=== PATIENT | female | born 1940 | race Two or more races ===

== ENCOUNTER 2025-11-16 21:29 | Observation (INO) | payer OTHER, SELFPAY ==
[2025-11-16] VITALS (8 sets, daily range): BP systolic 151–180; BP diastolic 72–92; BMI 23.7
[2025-11-16 14:11] LABS: Hematocrit 53.9 % (37.0-47.0); Hemoglobin 17.0 g/dL (12.0-16.0); Mean Corp Hgb Conc. 31.5 g/dL (33.0-37.0); Mean Corpuscular Volume 87.2 fL (81.0-99.0); Nucleated Red Blood Cells % 0 %; Platelet Count 595 10^3/uL (130-400); Red Cell Dist. Width 16.9 % (11.5-14.5)
[2025-11-16 14:21] LABS: ALT (SGPT) 42 U/L (0-35); AST (SGOT) 57 U/L (14-36); Albumin 4.5 g/dl (3.5-5.0); Alkaline Phosphatase 177 U/L (38-126); Blood Urea Nitrogen 19 mg/dl (7-17); Calcium 9.6 mg/dl (8.4-10.2); Carbon Dioxide 21 mmol/L (22-30); Chloride 105 mmol/L (98-107); Glucose 148 mg/dl (70-99); Lipase 286 U/L (23-300); Potassium 4.3 mmol/L (3.5-5.1); Sodium 138 mmol/L (135-145); Total Protein 7.4 g/dl (6.3-8.2); eGFR > 60.00
[2025-11-16 14:30] LABS: Troponin I < 0.012 ng/ml
[2025-11-16 14:35] LABS: COVID-19 Antigen Negative (Negative)
--- NOTE | 2025-11-16 16:52 | ED.GENMED ---
History of Present Illness
General
Chief Complaint: Dizziness
Source: patient and maintenance inspector
Exam Limitations: none
Time Seen by Provider: 11/16/25 16:23
Nursing documentation reviewed up to this point in time: agreed with
History of Present Illness
History of Present Illness:
The patient is an 85-year-old female who speaks Indonesian and arrives with multiple complaints. Patient reports 5 days of dizziness and nausea. Her daughter is at the bedside and states she can even get up and walk. She denies any falls. She
reports she has never had this before. Patient reports that when she tries to get up and walk around, her vision changes, however, it is difficult to understand what specific changes there are. Patient denies loss of vision. Patient denies
headache and sore throat. Additionally, patient reports intermittent chest pain but denies current chest pain. She denies shortness of breath and cough. She denies intermittent left ear pain. Additionally, patient reports when she coughs the
right side of her abdomen hurts. She denies constipation and diarrhea. Her daughter reports she also seems weak and thinks she needs IV fluids.
Translation Services
Preferred Language: Indonesian
Past History
Past History
ED Past Medical History: HTN, Hypercholesterolemia and NIDDM
ED Past Surgical History: Other
Social History
Tobacco: Non-smoker
Alcohol: None
Drug: None
Personal: Other
Living: with family
Employment: Other
Family History
Family History: Other
Review of Systems
Review of Systems
Allergies reviewed?: Yes
Other source history: family
All Other Systems: ROS reviewed and negative except as documented in HPI and ROS
Constitutional: Reports fatigue
EENT: Reports other (Left ear pain)
Respiratory: Reports no symptoms
Cardiac: Reports chest pain
ABD/GI: Reports abdominal pain, nausea and vomiting
: Reports no symptoms
Musculoskeletal: Reports no symptoms
Skin: Reports no symptoms
Neurological: Reports dizzy
Endocrine: Reports no symptoms
Hematologic/Lymphatic: Reports no symptoms
Psychiatric: Reports no symptoms
Phy Exam
Physical Exam
Physical Exam:
Physical Exam
General: Patient appears uncomfortable, lying in position but nontoxic
Neck: supple. no meningeal signs. normal posterior pharynx. Tympanic membranes appear normal bilaterally
Heart: s1/s2 regular rate and rhythm, no murmur. equal radial pulses.
Lungs: no acute respiratory distress. clear bilaterally
Abdomen: Right sided abdominal tenderness. Possible right flank tenderness. Abdomen is soft and nondistended. Normal bowel sounds
Neuro: alert and orientedx3. no focal neurological deficits. 5 out of 5 strength in all extremities. Cranial nerves equal and symmetric bilaterally.
Skin: no rash
Psychiatric: well kept. interactive and cooperative
Extremities: no edema. no calf tenderness. negative homans. good distal pulses
Course
Orders/Labs/Results
Orders:
Orders
11/16/25 13:40
EKG [Electrocardiogram (*1)] Urgent
Reason for Study: Chest Pain
11/16/25 13:41
EKG- Treatment ONCE
11/16/25 13:57
COVID-19 Antigen Urgent
Source: Nasal Swab
Complete Blood Count/With Diff Urgent
Comprehensive Metabolic Panel Urgent
Lipase Urgent
Troponin I Urgent
Influenza A+B Rapid Molecular Urgent
ASHLEY Source: Nasal Swab
Specimen Description:
11/16/25 17:14
US Abdomen Complete/Upper Urgent
Comment:
Reason For Exam: R sided pain, increased LFTs
11/16/25 17:15
CT Head W/o Iv Contrast Urgent
Comment:
Reason For Exam: dizziness
Meclizine [Antivert] 37.5 mg PO NOW STA
11/16/25 17:20
0.9% Sodium Chloride 500 ml [Nss] 500 ml IV BOLUS
11/16/25 17:51
Urinalysis Reflex To Culture Urgent
Date Specimen was Collected: 11/16/25
Time Specimen was Collected: 17:50
Urine Microscopic Reflex Cult Urgent
Urine Culture Urgent
ASHLEY Source: U
Specimen Description:
Date Specimen was Collected: 11/16/25
Time Specimen was Collected: 17:50
Abnormal Lab Results
11/16/25 11/16/25
13:57 17:51
WBC 12.9 H 10^3/uL
(4.8-10.8)
RBC 6.18 H 10^6/uL
(4.20-5.40)
Hgb 17.0 H g/dL
(12.0-16.0)
Hct 53.9 H %
(37.0-47.0)
MCHC 31.5 L g/dL
(33.0-37.0)
RDW 16.9 H %
(11.5-14.5)
Plt Count 595 H 10^3/uL
(130-400)
Abs Immat Gran (auto) 0.1 H 10^3/uL
(0-0.05)
Absolute Neuts (auto) 10.2 H 10^3/uL
(1.4-6.5)
Neutrophils % 78.7 H %
(42.2-75.2)
Lymphocytes % 12.9 L %
(20.5-51.1)
Carbon Dioxide 21 L mmol/L
(22-30)
BUN 19 H mg/dl
(7-17)
Glucose 148 H mg/dl
(70-99)
AST 57 H U/L
(14-36)
ALT 42 H U/L
(0-35)
Alkaline Phosphatase 177 H U/L
(38-126)
Leukocyte Esterase Rfl 1+ A
(Negative)
Urine Albumin (Reflex) 1+ A
(Neg - Trace)
11/16/25 13:57
11/16/25 13:57
Vital Signs
Initial and Last Documented VS:
Initial Vital Signs
Temp Pulse Resp BP Pulse Ox
97.9 F 88 18 169/86 100
11/16/25 13:37 11/16/25 13:37 11/16/25 13:37 11/16/25 13:37 11/16/25 13:37
Last Documented Vital Signs
Temp Pulse Resp BP Pulse Ox
97.9 F 90 19 172/84 98
11/16/25 13:37 11/16/25 19:01 11/16/25 19:01 11/16/25 19:01 11/16/25 19:01
MDM/Problems Addressed
Differential Diagnosis Includes:
Acute CVA, acute vertigo, acute UTI
MDM/Problems Addressed:
Patient presents with acute dizziness, right sided abdominal pain
Chronic conditions affecting care: DM
Acute Exacerbation and/or Progression of Chronic Illness:
Patient is acutely hyperglycemic but no DKA
Acute Exacerbation and/or Progression of Chronic Illness: DM
*Radiology
Radiology exam reviewed: radiology read reviewed
*Pulse Oximetry
SaO2: 100
Oxygen Mode of Delivery: Room air
Patient hypoxic: no
*EKG
Interpreted by ED Provider?: Yes
Interpretation: normal
Comparison EKG: no comparison EKG present
Rate: normal
Rhythm: sinus
[place]: normal axis
Interval: normal interval
QRS Pattern: normal QRS
Ischemia: no ischemia
*Depot Agent Interpretation
Rate: normal
Interpretation: normal
Rhythm: sinus
*Critical Care Note
Total Time (30-74mins, 75-104mins- exclusive of procedures): Not Applicable
Data Reviewed
Source: patient, family and maintenance inspector
Patient Management
Social determinants of health affecting care: Living situation and Strong social support
Discussion with other providers: Hospitalist
Escalation/DeEscalation of care consider admission/obs:
7:30 PM I reassessed patient. She was able to walk but is still off balance. Her daughter reports this is very unusual for her. Given this, patient will be admitted for further neurological workup. Ultrasound does show cholelithiasis, however,
patient has had no significant right sided abdominal pain, nausea or vomiting in the ED and there is no sign of acute cholecystitis on ultrasound.
ED Attending Note
-
Portions of this chart may have been created with voice recognition software.� Occasional wrong word or��sound alike� substitutions may have occurred due to the inherent limitations of voice recognition software.
Discharge Plan
Departure
Patient Disposition: Admit
Date of Disposition: 11/16/25
Time of Disposition: 20:01
Admit to: Telemetry
Presentation/result/management discussed w/ accepting MD/DO: Hospitalist
Patient with high blood pressure during this ER visit?: Yes
Condition: Good
Covid-19: Negative COVID-19
Discharge Problem:
Acute dizziness, Cholelithiasis
Referrals:
Jonathan Toney MD [Family Provider, Internal Medicine]
Interventions
Interventions:
*General Assessment Last Done: 11/16/25 13:37
*ED COVID-19 Vaccine History Last Done: 11/16/25 13:37
*ED Influenza Vaccine History Last Done: 11/16/25 13:37
[facility] Risk Assessment Tool Last Done: 11/16/25 13:32
*Risk Screen - Suicide (C-SSRS) Last Done: 11/16/25 13:37
ED- Neurological Assessment Last Done: 11/16/25 17:54
ED- Cardiac Assessment Last Done: 11/16/25 17:54
ED Swallowing Screen Last Done: 11/16/25 19:13
Discharge Date and Time
Print Language: MALDIVIAN
[2025-11-16 18:18] LABS: Urine Character Clear (Clear)
[2025-11-16 18:27] LABS: Urine Red Blood Cell 0-2 /HPF (0-2)
[2025-11-16] MEDS: ANTIVERT 37.5 MG PO (18:38)
[2025-11-16] MEDS: NSS 500 IV (18:46)
--- NOTE | 2025-11-16 20:17 | HPS.HSE ---
Addendum entered and electronically signed by Harpal Okeefe DO 11/16/25 22:45:
Patient seen and examined independently. Agree with findings and plan as set forth by JULIANNE Sanchez.
Patient is an 85y F with PMH significant for hypertension, DM-II and iron deficiency who presents to ED complaining of dizziness, chest pain and cough. 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
Patient has reportedly had cough x several days - slowly improving according to daughter. Multiple family members have been ill with similar symptoms of late. Today patient complained of feeling dizzy with standing. She reports room spinning
sensation and nausea - but no emesis. She feels improved when lying down.
She also complains of some chest discomfort and R hip pain. No fall, injury or trauma per daughter.
Patient is able to move her RLE with no pain or restricted ROM in the ED.
Ass:
Dizziness, BPPV
Viral Bronchitis / Viral Syndrome
Transaminitis likely secondary to the above
Atypical Chest Pain
Polycythemia
Right Hip Pain
Benign Hypertension
DM-II
Plan:
Observe overnight for further evaluation and treatment.
Suspect viral syndrome including cough, abnormal LFTs and now inner ear involvement / BPPV.
Supportive care / symptom control.
PT / vestibular therapy evaluation.
Observe off of abx for now.
Follow for clinical improvement.
Check serial troponin given chest discomfort - though suspect this is due to cough > cardiac etiology.
PT eval for balance, gait and R hip discomfort. No suspicion of fracture / dislocation by exam.
Hold Lasix, metformin. Continue other home medications.
Original Note:
Family Physician
-
Family Physician: Jonathan Toney
Chief Complaint
-
dizzy, nausea
History of Present Illness
85-year-old female With past medical history for iron deficiency anemia, GERD, type 2 diabetes, hyperlipidemia, hypertension Presented to us with dizziness. She reports dizzy when she gets up and moving around. She feels like the room is spinning.
she is not able to stand up due to dizzy. denied any headache. Denied any syncopal episode. Patient complained of nonproductive cough for past few days which is improving.patient denied any fever, chills. Patient complaining of some left-sided
chest pain. she complained of left ear pain. patient complained of right hip thigh pain patient denied any abdominal pain she complained of nausea. Denied dysuria hematuria
paient recived a dose of meclizine in ER. patient also recived normal saline. admitting for further managment.
Medical History
Past Medical History
Past Medical History: Reports Other
Additional Past Medical History:
iron def anemia, HTn, GERD, type 2 Dm, GERD, HTN
Past Surgical History: Reports None
Social History
Tobacco: Non-smoker
Alcohol: None
Living: With Family
Family History
Family History: Not pertinent
Allergies / Home Medications
Allergies reflects when Allergies were last updated in [employer].
Home Medications with original date entered in [employer]
Allergy/Medication List:
Allergies
Allergy/AdvReac Type Severity Reaction Status Date / Time
No Known Allergies Allergy Unverified 11/16/25 13:40
Review of Systems
-
Constitutional: Reports No Symptoms
EENT: Reports No Symptoms
Respiratory: Reports Cough
Cardiac: Reports No Symptoms
Abdomen/GI: Reports Nausea
: Reports No Symptoms
Musculoskeletal: Reports No Symptoms
Skin: Reports No Symptoms
Neurological: Reports Dizzy
Endocrine: Reports No Symptoms
Hematologic/Lymphatic: Reports No Symptoms
Psych: Reports No Symptoms
Physical Exam
Vital Signs
Vital Signs
Temp Pulse Resp BP Pulse Ox
97.9 F 90 19 172/84 98
11/16/25 13:37 11/16/25 19:01 11/16/25 19:01 11/16/25 19:01 11/16/25 19:01
Physical Exam
General: Well Developed, Well Nourished and No Apparent Distress
HEENT: NormoCephalic, Moist mucous membranes and Atraumatic
Respiratory: Clear
Cardiac: S1/S2 and Regular Rhythm; No Murmur or Rub
GI: Soft, Non Tender, Non Distended and Normal Bowel Sounds; No Organomegaly
Rectal: Deferred by Provider
Musculoskeletal: No Clubbing, No Cyanosis and No Edema
Skin: No Rash
Neuro: AO x 3 and Nonfocal/grossly intact
Psych: Calm
Laboratory Results
-
11/16/25 13:57
11/16/25 13:57
Laboratory Results
Total Bilirubin 0.7 mg/dl (0.2-1.3) 11/16/25 13:57
AST 57 U/L (14-36) H 11/16/25 13:57
ALT 42 U/L (0-35) H 11/16/25 13:57
Alkaline Phosphatase 177 U/L (38-126) H 11/16/25 13:57
Troponin I < 0.012 ng/ml 11/16/25 13:57
Lipase 286 U/L (23-300) 11/16/25 13:57
Data Reviewed
-
CT Scan: Report Reviewed by me
Ultrasound: Report Reviewed by me
Lab Data: Labs Reviewed by me
Impression/Plan
-
#dizzy concern for BPPV
-Ct head negative
-meclizine prn
-EKG with NSR
-obtain orthostatics
-PT/OT consulted
#cough likely viral
#leukocytosis likely reactive
-wbc 12.9
-obtain chest x ray
-covid and flu negative
-Mucinex prn
-nebs continued
-Symbicort continued
#right hip pain radiating to thigh likely sciatica
-Tylenol prn for pain
-PT/OT consulted.
#chest pain likely from cough
-trop negative
-continue to trend trop and EKG
#hemoconcentration likely dehydration
#thrombocytosis
-hgb 17.0, fluids continued
-monitor CBC
#transaminitis
-ast 57,alt 42, alk 177
-abdominal US with fatty infiltration of liver. Cholelithiasis without sonographic evidence of acute cholecystitis. No bile duct dilatation. Pancreatic tail obscured. Otherwise unremarkable.
-trend lft's
#GERD
-PPI continued
#essential THN
-Norvasc continued
-clonidine continued
-hold Lasix.
#HLD
-statin continued
#type 2 Dm
-hold metformin
-sliding scale
-CHO diet
#DVT prophylaxis
-Lovenox
#CODE status
-full code
[2025-11-16] MEDS: NSS 1000 IV (23:30)
[2025-11-17] VITALS (7 sets, daily range): BP systolic 121–166; BP diastolic 58–96; PULSE 88–108
[2025-11-17] MEDS: COMPAZINE 5 MG IV (00:43)
[2025-11-17 01:31] LABS: Troponin I < 0.012 ng/ml
[2025-11-17] MEDS: ANTIVERT 25 MG PO (04:40)
[2025-11-17 07:01] LABS: Hematocrit 48.4 % (37.0-47.0); Hemoglobin 15.7 g/dL (12.0-16.0); Mean Corp Hgb Conc. 32.4 g/dL (33.0-37.0); Mean Corpuscular Volume 86.7 fL (81.0-99.0); Platelet Count 576 10^3/uL (130-400); Red Cell Dist. Width 15.8 % (11.5-14.5)
[2025-11-17 07:07] LABS: Glucose - Point of Care 129 mg/dl (70-99)
[2025-11-17 07:15] LABS: ALT (SGPT) 42 U/L (0-35); AST (SGOT) 47 U/L (14-36); Albumin 4.0 g/dl (3.5-5.0); Alkaline Phosphatase 167 U/L (38-126); Blood Urea Nitrogen 15 mg/dl (7-17); Calcium 9.0 mg/dl (8.4-10.2); Carbon Dioxide 25 mmol/L (22-30); Chloride 105 mmol/L (98-107); Estimated Creatinine Clearance 39 ml/min; Glucose 140 mg/dl (70-99); HDL Cholesterol 60 mg/dl; LDL Cholesterol, Calculated 60 mg/dl; Potassium 4.1 mmol/L (3.5-5.1); Sodium 139 mmol/L (135-145); Total Protein 6.6 g/dl (6.3-8.2); Very Low Density Lipoprotein 17 mg/dl (0-30); eGFR > 60.00
[2025-11-17] MEDS: SYMBICORT 80/4.5 MCG INHALER 2 PUFF INH (07:17)
[2025-11-17] MEDS: SPIRIVA RESPIMAT 2.5 MCG 2 PUFF INH (07:17)
[2025-11-17 07:21] LABS: Troponin I < 0.012 ng/ml
[2025-11-17] MEDS: PROTONIX 40 MG PO (08:58)
[2025-11-17] MEDS: CATAPRES 0.1 MG PO (08:58)
[2025-11-17] MEDS: NORVASC 5 MG PO (08:59)
[2025-11-17] MEDS: LIPITOR 20 MG PO (08:59)
[2025-11-17] MEDS: FEOSOL 325 MG PO (08:59)
[2025-11-17 09:55] LABS: Glycohemoglobin (HgbA1c) 6.6 % (4.0-5.9)
--- NOTE | 2025-11-17 12:49 | W.DCSUMMARY ---
Discharge Summary
Discharge Data
Date of Admission: 11/16/25
Date of Discharge: 11/17/25
Total time spent discharging patient (in min): 50
-
Pending Results: Yes
Additional Pending Results:
PT eval
Hospital Course
Initial Presentation
Patient is an 85y F with PMH significant for hypertension, DM-II and iron deficiency who presented to ED complaining of dizziness, chest pain and cough. 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
Patient had reported a cough for several days - which has been slowly improving according to daughter. Multiple family members have been ill with similar symptoms of late. On day of admit, the patient complained of feeling dizzy with standing.
She reported room spinning sensation and nausea - but no emesis. She feels improved when lying down. She also complained of some chest discomfort and R hip pain. No fall, injury or trauma per daughter. Patient was able to move her RLE with no
pain or restricted ROM in the ED.
Admit diagnoses:
Dizziness,
BPPV
Viral Bronchitis / Viral Syndrome
Transaminitis likely secondary to the above
Atypical Chest Pain
Polycythemia
Right Hip Pain
Benign Hypertension
DM-II
Other known diagnosis present on admission:
iron def anemia,
HTN,
GERD,
type 2 Dm,
GERD,
essential HTN
Hospital course by problem:
1. dizziness with concern for BPPV
The Ct of the head was without acute findings (Mild chronic microvascular white matter ischemic change. No evidence to suggest acute large vascular territory transcortical infarct at this time. 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
margin of the left cerebellum). Recommend she try meclizine prn. Her EKG did not have an explanation for the symptoms, with NSR. Orthostatics were negative. PT/OT consulted. Recommend follow up with PCP as outpatient. We gave her the option of
going home or being observed one more night and she requested to go home.
2. Cough, likely viral. Continued, but the patient stated it was getting better. Her leukocytosis was likely reactive. The chest x ray had no acute cardiopulmonary processes. She was covid and flu negative. We recommend Mucinex prn, and the
Symbicort to be continued
3. Right hip pain radiating to thigh, likely sciatica. We recommend Tylenol prn for pain. PT/OT were consulted.
4. chest pain likely from cough. Troponins were negative x 3. ECG did not change.
5. hemoconcentration likely dehydration. She as given IV hydration. We recommend outpatient monitoring of CBC.
6. Transaminitis, improving. Her abdomen was not tender. The abdominal US showed fatty infiltration of liver. Cholelithiasis without sonographic evidence of acute cholecystitis. No bile duct dilatation. Pancreatic tail obscured. Otherwise
unremarkable. Recommend outpatient follow up.
7. Other diagnoses, and recommendations:
GERD - PPI continued
essential HTN -Norvasc continued, -clonidine continued, -held Lasix.
HLD -statin continued
type 2 Dm - held metformin, -used sliding scale and CHO diet
DVT prophylaxis while in the hospital was Lovenox
CODE status while in the hospital was full code
Physical Exam on day of discharge:
General: Well Developed, Well Nourished and No Apparent Distress
HEENT: NormoCephalic, Moist mucous membranes and Atraumatic
Respiratory: Clear
Cardiac: S1/S2 and Regular Rhythm; No Murmur or Rub
GI: Soft, Non Tender, Non Distended and Normal Bowel Sounds; No Organomegaly
Neuro: AO x 3 and Nonfocal/grossly intact
Psych: Calm
Discharge Plan
-
Patient Disposition: Home (Routine Discharge)
Discharge Diagnosis/Procedures: Vertigo, cough
Diet: As tolerated
Activity: No restrictions
Driving Restrictions: As prior to admission
Bathing Restrictions: None
Referrals:
Jonathan Toney MD [Family Provider, Internal Medicine]
Prescriptions:
New
meclizine 25 mg Tablet
25 mg PO Q8HPRN PRN (Reason: dizzy) Qty: 30 0RF
guaifenesin 600 mg Tablet Extended Release 12hr
600 mg PO C00OEPL PRN (Reason: cough) Qty: 30 0RF
acetaminophen 325 mg Tablet
650 mg PO Q4HPRN PRN (Reason: mild pain/MORRISON/temp> 100.4F) Qty: 30 0RF
Continued
clonidine HCl 0.1 mg tablet
0.1 mg PO DAILY
atorvastatin 20 mg tablet
20 mg PO DAILY
famotidine 40 mg tablet
40 mg PO HS
metformin 850 mg tablet
850 mg PO BID
amlodipine 5 mg tablet
5 mg PO DAILY
pantoprazole 40 mg tablet,delayed release (DR/EC)
40 mg PO DAILY
ferrous sulfate [FeroSul] 325 mg (65 mg iron) tablet
325 mg PO DAILY
furosemide 20 mg tablet
20 mg PO DAILY
albuterol sulfate 90 mcg/actuation HFA aerosol inhaler
INHALATION Q4HPRN PRN (Reason: sob)
budesonide-formoterol [Symbicort] 160-4.5 mcg/actuation HFA aerosol inhaler
INHALATION
Trelegy Ellipta 100-62.5-25 mcg blister with device
INHALATION
Discharge Orders:
Discharge Patient (As Directed); Ordered 11/17/25
Ordered By: Raulito Hernández
Discharge Date and Time
Print Language: KAZAKH
[2025-11-17 13:58] LABS: Glucose - Point of Care 94 mg/dl (70-99)
[2025-11-17] MEDS: NSS IV (14:00)
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
== END 2025-11-17 15:33 | disposition home or self-care (01) ==
LOC: 2 NORTH 21:29
PROVIDERS: Registered Nurse; Student in an Organized Health Care Education/Training Program; ADMITTING PHYSICIAN Hospitalist; ATTENDING PHYSICIAN Internal Medicine; EMERGENCY PHYSICIAN Emergency Medicine; FAMILY PHYSICIAN Internal Medicine
DX: H81.10 Benign paroxysmal vertigo, unspecified ear (principal); Z11.52 Encounter for screening for COVID-19; K80.20 Calculus of gallbladder without cholecystitis without obstruction; J20.8 Acute bronchitis due to other specified organisms; B97.89 Other viral agents as the cause of diseases classified elsewhere; M25.551 Pain in right hip; D75.1 Secondary polycythemia; I10 Essential (primary) hypertension; E11.9 Type 2 diabetes mellitus without complications; K21.9 Gastro-esophageal reflux disease without esophagitis; D50.9 Iron deficiency anemia, unspecified; D75.839 Thrombocytosis, unspecified
CPT/HCPCS: 70450; 71046; 76700; 80053; 80061; 81003; 81015; 82962; 83036; 83690; 84484; 85025; 85027; 87086; 87502; 87811; 93005; 94640; 97162; 97166; 99285; G0378